=== PATIENT | female | born 1985 | race Caucasian/White ===

== ENCOUNTER 2021-06-19 05:10 | Inpatient (IN) | payer OTHER, SELFPAY ==
[~2021-06-19] VITALS: Ht 154.9 cm; Wt 82.6 kg
[2021-06-19] MEDS ORDERED: TERBUTALINE SULFATE 1 MG/ML VIAL SUBCUT ONE (06:30)
[2021-06-19] MEDS ORDERED: OXYTOCIN/0.9 % SODIUM CHLORIDE 1,000 ML IV SCH ×2 (06:30→16:45)
[2021-06-19] MEDS ORDERED: NALBUPHINE HCL 10 MG/ML AMP IVP PRN (06:30)
[2021-06-19 06:38] VITALS: BP_SYST 139
[2021-06-19] MEDS: LR 1,000 ML IV SCH ×2 (07:30→13:25)
[2021-06-19 09:02] LABS: BASOPHILS % (AUTO) 0.3 % (0.0-2.0); EOSINOPHILS # (AUTO) 0.1 K/uL (0.0-0.4); HEMATOCRIT 37.4 % (36-48); HEMOGLOBIN 12.8 g/dL (12.0-16.0); LYMPHOCYTES # (AUTO) 1.9 K/uL (1.0-5.5); MEAN CORPUSCULAR HEMOGLOBIN 34 pg (27-31); MEAN CORPUSCULAR HGB CONC 34 % (32-36); MEAN CORPUSCULAR VOLUME 99 fL (79.0-98.0); MONOCYTES # (AUTO) 0.7 K/uL (0.0-1.0); MONOCYTES % (AUTO) 7.1 % (1.7-9.3); NEUTROPHILS # (AUTO) 6.9 K/uL (1.8-7.7); NEUTROPHILS % (AUTO) 71.6 % (40.0-70.0); PLATELET COUNT (AUTO) 149 K/uL (130-430); RED BLOOD CELL COUNT(AUTO) 3.79 MIL/uL (4.2-6.2); RED CELL DISTRIBUTION WIDTH 13.1 % (9.0-15.0); WHITE BLOOD COUNT (AUTO) 9.6 K/uL (4.8-10.8)
[2021-06-19] MEDS ORDERED: NALBUPHINE HCL 10 MG/ML AMP ONE (10:30)
[2021-06-19] MEDS ORDERED: ROPIVACAINE HCL/PF 0.2% 200 ML ONE (11:41)
[2021-06-19] MEDS ORDERED: fentaNYL CITRATE/PF 100 MCG/2 ML AMP ONE (11:41)
[2021-06-19] MEDS ORDERED: ePHEDrine sulfate 50 MG/ML VIAL IVP ONE (12:27)
[2021-06-19] MEDS ORDERED: ePHEDrine sulfate 50 MG/ML VIAL ONE (12:27)
[2021-06-19] MEDS ORDERED: FENT2mCg/mL-ROPIVA0.2%/NS EPID 200 ML EP SCH (12:30)
[2021-06-19] MEDS ORDERED: ONDANSETRON HCL 4 MG/2 ML VIAL IVP PRN (12:30)
[2021-06-19] MEDS ORDERED: DIPHENHYDRAMINE INJ 50 MG/ML VIAL IVP PRN (12:30)
[2021-06-19] MEDS ORDERED: NALOXONE HCL 0.4 MG/ML AMP (NARCAN) IVP PRN ×2 (12:30→16:45)
[2021-06-19] MEDS ORDERED: DIPH-TET-PERTUS Vaccine 0.5 ML VIAL (ADACEL) I.M. PRN (16:45)
[2021-06-19] MEDS ORDERED: LANOLIN 7 GM OINT. TP PRN (16:45)
[2021-06-19] MEDS ORDERED: OXYCODONE/ACETAMINOPHEN 5-325 TABLET PO PRN ×2 (16:45)
[2021-06-19] MEDS ORDERED: DERMOPLAST SPRAY TP PRN (16:45)
[2021-06-19] MEDS ORDERED: HYDROCORTISONE 0.5% CREAM 28.4 GM CREAM.GM. TP PRN (16:45)
[2021-06-19] MEDS ORDERED: RHO(D) IMMUNE GLOBULIN/MALTOSE 1500 UNITS/1.3 ML (WINHRO) IM PRN (16:45)
[2021-06-19] MEDS ORDERED: WITCH HAZEL LEAF 1 MED.PAD MED.PAD TP PRN (16:45)
[2021-06-19] MEDS ORDERED: ANUSOL 1 EA SUPP.RECT (PREPARATION H) RC PRN (16:45)
[2021-06-19] MEDS ORDERED: METHYLERGONOVINE MALEATE 0.2 MG TABLET PO PRN (16:45)
[2021-06-19] MEDS ORDERED: OXYTOCIN/0.9 % SODIUM CHLORIDE 1,000 ML IV ONE (16:45)
[2021-06-19] MEDS ORDERED: HYDROcodone/ACETAMIN 5-325 MG TAB (NORCO/ VICODIN) PO PRN (16:45)
[2021-06-19] MEDS ORDERED: MEASLES,MUMPS&RUBELLA VACC/PF 12500 UNIT/0.5 ML VIAL SUBQ PRN (16:45)
[2021-06-19] MEDS: IBUPROFEN 600 MG TABLET PO SCH ×2 (18:00→18:35)
[2021-06-19] MEDS ORDERED: TEMAZEPAM 15 MG CAPSULE PO PRN (21:00)
[2021-06-19] MEDS ORDERED: SENNOSIDES/DOCUSATE SODIUM 1 TAB TABLET(SENOKOT-S) PO SCH (21:00)
[2021-06-20] MEDS: IBUPROFEN 600 MG TABLET PO SCH ×3 (00:10→17:09)
[2021-06-20 07:00] LABS: BASOPHILS % (AUTO) 0.3 % (0.0-2.0); EOSINOPHILS # (AUTO) 0.1 K/uL (0.0-0.4); EOSINOPHILS % (AUTO) 0.9 % (0.0-4.0); HEMATOCRIT 30.9 % (36-48); HEMOGLOBIN 10.6 g/dL (12.0-16.0); LYMPHOCYTES # (AUTO) 1.6 K/uL (1.0-5.5); LYMPHOCYTES % (AUTO) 15.2 % (20.5-51.5); MEAN CORPUSCULAR HEMOGLOBIN 34 pg (27-31); MEAN CORPUSCULAR HGB CONC 34 % (32-36); MEAN CORPUSCULAR VOLUME 100 fL (79.0-98.0); MONOCYTES # (AUTO) 0.8 K/uL (0.0-1.0); MONOCYTES % (AUTO) 7.8 % (1.7-9.3); NEUTROPHILS # (AUTO) 8.1 K/uL (1.8-7.7); NEUTROPHILS % (AUTO) 75.8 % (40.0-70.0); PLATELET COUNT (AUTO) 142 K/uL (130-430); RED CELL DISTRIBUTION WIDTH 13.1 % (9.0-15.0); WHITE BLOOD COUNT (AUTO) 10.7 K/uL (4.8-10.8)
[2021-06-20] MEDS ORDERED: DOCUSATE SODIUM 100 MG CAPSULE PO SCH (09:00)
[2021-06-20] MEDS ORDERED: MINERAL OIL 30 ML UDC PO ONE (12:37)
[2021-06-21 20:09] LABS: FTA-Ab (T PALLIDUM) Non Reactive (Non Reactive)
== END 2021-06-20 17:40 | disposition home or self-care (01) | DRG 806 ==
LOC: SPU 05:10
PROVIDERS: ADMIT Specialist; ATTEND Specialist
PROC: 10E0XZZ Delivery of Products of Conception, External Approach (ICD-10-PCS; principal; 2021-06-19)
PROC: 0KQM0ZZ Repair Perineum Muscle, Open Approach (ICD-10-PCS; 2021-06-19)
PROC: 3E0R3BZ Introduction of Anesthetic Agent into Spinal Canal, Percutaneous Approach (ICD-10-PCS; 2021-06-19)
PROC: 3E0R33Z Introduction of Anti-inflammatory into Spinal Canal, Percutaneous Approach (ICD-10-PCS; 2021-06-19)
DX: O70.1 Second degree perineal laceration during delivery (principal); D62 Acute posthemorrhagic anemia; Z37.0 Single live birth; Z20.822 Contact with and (suspected) exposure to COVID-19; Z3A.39 39 weeks gestation of pregnancy
CPT/HCPCS: 36415; 81002; 85025; 86592; 86780; 86886; 86900; 86901; J2300; J2590; J3010

== ENCOUNTER 2024-03-04 08:53 | Day surgery (SDC) | payer OTHER ==
[~2024-03-04] VITALS: Ht 154.9 cm; Wt 77.1 kg
[~2024-03-04 08:53] MED LIST: CEFAZOLIN SOD 2 GM in D5W 50 ML IV ONE
[2024-03-04 10:06] LABS: HCG,QUAL RESULT NEGATIVE (NEGATIVE)
[2024-03-04] MEDS ORDERED: LIDOCAINE/EPI 1% 1:100000 20 ML VIAL ONE (10:45)
[2024-03-04] MEDS ORDERED: ONDANSETRON HCL 4 MG/2 ML VIAL IVP PRN ×2 (11:45→12:00)
[2024-03-04] MEDS ORDERED: KETOROLAC TROMETHAMINE 30 MG VIAL IVP PRN (11:45)
[2024-03-04] MEDS ORDERED: HYDROmorphone 1 MG/ML INJ. CARTRIDGE IVP PRN (11:45)
[2024-03-04] MEDS ORDERED: HYDROmorphone 2 MG/ML VIAL IVP PRN (11:45)
[2024-03-04] MEDS ORDERED: ACETAMINOPHEN I.V. 1000 MG 100 ML IV ONE (11:47)
[2024-03-04] MEDS ORDERED: OXYCODONE/ACETAMINOPHEN 5-325 TABLET PO PRN ×2 (12:00)
[2024-03-04] MEDS ORDERED: HYDROcodone/ACETAMIN 5-325 MG TAB (NORCO/ VICODIN) PO PRN (12:00)
[2024-03-04] MEDS ORDERED: HYDROmorphone 1 MG/ML INJ. CARTRIDGE ONE (12:31)
[2024-03-04 14:36] VITALS: O2SAT 100
[2024-03-04 14:38] VITALS: BP_SYST 127; PULSE 68; RESP 16; TEMP 97.4
== END 2024-03-04 15:10 | disposition home or self-care (01) ==
LOC: SDS 08:53 → SMU 08:53 → SDS 15:10
PROVIDERS: ATTEND Specialist
DX: Z30.2 Encounter for sterilization (principal); E28.2 Polycystic ovarian syndrome; N92.6 Irregular menstruation, unspecified; Z98.890 Other specified postprocedural states
CPT/HCPCS: 87081; 58670; 84703; 88302; J0690; J3490; J1885; J2765; J3465; J2710; J2405; J2704; J0330; J3010; J1170; J7060; J7120; C1727; J0131